=== PATIENT | female | born 1985 | race African-American/Black ===

== ENCOUNTER → 2017-11-29 | Outpatient (CLI) | payer OTHER ==
[2017-11-29 08:07] LABS: BASOPHIL % 0.5 % (0-2); PLATELET COUNT 382 x10^3mcL (130-400)
[2017-11-30 05:07] LABS: RAPID PLASMA REAGIN Non Reactive (Non Reactive)
== END | disposition home or self-care (01) ==
LOC: LB 07:33
DX: Z34.92 Encounter for supervision of normal pregnancy, unspecified, second trimester (principal)

== ENCOUNTER → 2017-12-07 | Outpatient (CLI) | payer OTHER ==
[2017-12-07 10:15] LABS: BASOPHIL % 0.3 % (0-2); RED CELL DISTRIBUTION WIDTH 12.9 % (11.5-14.5)
[2017-12-07 10:17] LABS: PLATELET COUNT 410 x10^3mcL (130-400)
[2017-12-07 10:32] LABS: ALKALINE PHOSPHATASE 122 U/L (46-116); ALT/SGPT 19 U/L (14-59); AST/SGOT 11 U/L (15-37); BILIRUBIN TOTAL 0.3 mg/dL (0.20-1.00); CALCIUM 8.8 mg/dL (8.5-10.1); CARBON DIOXIDE 24.7 mmol/L (21-32); CHLORIDE SERUM 106 mmol/L (98-107); CREATININE SERUM 0.5 mg/dL (0.6-1.0); GFR1 > 60 mL/min; GLUCOSE SERUM 100 mg/dL (74-106); POTASSIUM SERUM 3.8 mmol/L (3.5-5.1); SODIUM SERUM 137 mmol/L (136-145); TOTAL PROTEIN, SERUM 7.3 g/dL (6.4-8.2)
[2017-12-07 10:33] LABS: ALBUMIN 2.5 g/dL (3.4-5.0)
== END | disposition home or self-care (01) ==
LOC: LB 09:11
DX: R19.7 Diarrhea, unspecified (principal)

== ENCOUNTER → 2018-01-31 | Outpatient (CLI) | payer OTHER ==
[2018-01-31 12:03] LABS: GLUCOSE FASTING 116 mg/dL (70-110)
== END | disposition home or self-care (01) ==
LOC: LB 09:06
DX: R73.02 Impaired glucose tolerance (oral) (principal)